=== PATIENT | female | born 1980 | race Caucasian/White ===

== ENCOUNTER 2018-03-30 | Emergency (ER) | payer BC, OTHER ==
[~2018-03-30] VITALS: Ht 147.3 cm; Wt 73.5 kg
[2018-03-30 00:07] VITALS: BP 121/79
--- NOTE | 2018-03-30 00:15 | NUR ---
PT AMBULATED TO ER BED 5, REPORT GIVEN TO JAY MIRELES.
[2018-03-30] MEDS ORDERED: KETOROLAC 30 MG/ML VIAL IM ONE (00:25)
[2018-03-30] MEDS ORDERED: ONDANSETRON 4 MG ODT PO ONE (00:25)
--- NOTE | 2018-03-30 00:30 | NUR ---
PATIENT PRESENTS TO ED WITH RUQ PAIN SINCE NOON. PT STATES N/V; SKIN IS PINK/WARM/DRY; AAOX4 WITH EVEN AND STEADY GAIT; LUNGS CLEAR BL; HR EVEN AND REGULAR; PT DENIES ANY FEVER, CP, SOB, OR COUGH AT THIS TIME; PATIENT STATES PAIN OF 10/10 AT THIS TIME; VSS; PATIENT POSITIONED FOR COMFORT; HOB ELEVATED; BEDRAILS UP X1; BED DOWN. ER MD MADE AWARE OF PT STATUS.
[2018-03-30 00:53] VITALS: BP 121/79
== END 2018-03-30 01:39 | disposition home or self-care (01) ==
LOC: MED
DX: T62.91XA Toxic effect of unspecified noxious substance eaten as food, accidental (unintentional), initial encounter (principal); Y92.89 Other specified places as the place of occurrence of the external cause
CPT/HCPCS: 76705; 81002; 81025; 96372; 99284; J1885; Q0092; S0119